=== PATIENT | female | born 1990 | race Caucasian/White ===

== ENCOUNTER 2019-01-04 20:39 | Emergency (ER) | payer MEDICAID, OTHER ==
[~2019-01-04] VITALS: Ht 154.9 cm; Wt 54.5 kg
[~2019-01-04 20:39] MED LIST: ACET-66 PO; [UNRECOGNIZED DRUG - OTHER] SQ
[2019-01-04 21:54] VITALS: BP 136/97
== END 2019-01-04 22:32 | disposition home or self-care (01) ==
LOC: EMS 20:39
DX: F41.9 Anxiety disorder, unspecified (principal); K08.89 Other specified disorders of teeth and supporting structures; F17.210 Nicotine dependence, cigarettes, uncomplicated

== ENCOUNTER 2019-09-23 03:31 | Emergency (ER) | payer SELFPAY ==
[~2019-09-23] VITALS: Ht 154.9 cm; Wt 56.8 kg
[2019-09-23] MEDS ORDERED: AMOXICILLIN TRIHYDRATE 250 MG CAPSULE PO ONE (05:15)
[2019-09-23 05:50] VITALS: BP 122/70
== END 2019-09-23 05:52 | disposition home or self-care (01) ==
LOC: EMS 03:32
DX: K02.9 Dental caries, unspecified (principal); G89.29 Other chronic pain; F17.210 Nicotine dependence, cigarettes, uncomplicated

== ENCOUNTER 2020-07-21 20:58 | Emergency (ER) | payer MEDICAID ==
[~2020-07-21] VITALS: Ht 154.9 cm; Wt 56.8 kg
[2020-07-21] MEDS ORDERED: ACETAMINOPHEN 500 MG TABLET PO ONE (22:30)
[2020-07-21] MEDS ORDERED: DOXYCYCLINE HYCLATE 100 MG TABLET PO ONE (22:30)
[2020-07-21 23:00] VITALS: BP 116/77
== END 2020-07-21 23:05 | disposition home or self-care (01) ==
LOC: EMS 20:59
DX: L03.115 Cellulitis of right lower limb (principal); F17.210 Nicotine dependence, cigarettes, uncomplicated

== ENCOUNTER 2020-09-20 01:01 | Emergency (ER) | payer MEDICAID ==
[~2020-09-20] VITALS: Ht 154.9 cm; Wt 56.8 kg
[2020-09-20 02:40] VITALS: BP 144/70
== END 2020-09-20 03:22 | disposition home or self-care (01) ==
LOC: EMS 01:03
DX: S02.5XXA Fracture of tooth (traumatic), initial encounter for closed fracture (principal); S01.511A Laceration without foreign body of lip, initial encounter; F17.210 Nicotine dependence, cigarettes, uncomplicated; Y04.0XXA Assault by unarmed brawl or fight, initial encounter; Y93.89 Activity, other specified; Y92.89 Other specified places as the place of occurrence of the external cause; Y99.8 Other external cause status
CPT/HCPCS: 99283; Z7502

== ENCOUNTER 2020-12-24 19:59 | Emergency (ER) | payer MEDICAID ==
[~2020-12-24] VITALS: Ht 157.5 cm; Wt 59.1 kg
[2020-12-24] MEDS ORDERED: ACETAMINOPHEN 500 MG TABLET PO ONE (20:45)
[2020-12-24 21:03] LABS: BASOPHILS % (AUTO) 0.5 % (0.0-2.0); EOSINOPHILS % (AUTO) 1.1 % (1.0-6.0); HEMOGLOBIN 11.5 g/dL (12.0-16.0); LYMPHOCYTES # (AUTO) 2.1 K/uL (1.0-4.8); LYMPHOCYTES % (AUTO) 19.7 % (22.0-44.0); MEAN CORPUSCULAR HEMOGLOBIN 30.3 pg (26.0-34.0); MEAN CORPUSCULAR HGB CONC 33.8 G/dL (31.0-37.0); MEAN CORPUSCULAR VOLUME 90 fL (80-100); MONOCYTES # (AUTO) 0.9 K/uL (0.1-1.0); MONOCYTES % (AUTO) 8.2 % (2.0-9.0); NEUTROPHILS # (AUTO) 7.6 K/uL (1.8-7.7); NEUTROPHILS % (AUTO) 70.5 % (40.0-70.0); PLATELET COUNT (AUTO) 372 K/uL (150-450); RED BLOOD CELL COUNT(AUTO) 3.78 MIL/uL (4.00-5.20)
[2020-12-24 21:16] LABS: ANION GAP 11 mmol/L (8-16); CALCIUM, TOTAL 9.3 mg/dL (8.8-10.5); CARBON DIOXIDE 26 mmol/L (22-29); CHLORIDE 100 mmol/L (98-107); CREATININE 0.54 mg/dL (0.60-1.30); GLOMERULAR FILTR. RATE CALC > 60 mL/min (>60); GLUCOSE,RANDOM 95 mg/dL (70-110); POTASSIUM 3.8 mmol/L (3.5-5.1); SODIUM SERUM 137 mmol/L (136-145); UREA NITROGEN, BLOOD 10 mg/dL (7-18)
[2020-12-24 21:27] LABS: ALANINE AMINOTRANSFERASE 21 U/L (12-78); ALBUMIN 3.5 g/dL (3.4-5.0); ALKALINE PHOSPHATASE 90 U/L (46-116); ASPARTATE AMINOTRANSFERASE 15 U/L (15-37); BILIRUBIN,TOTAL 0.4 mg/dL (0.1-1.0); HCG,QUANTITATIVE < 1 mIU/mL (0-6); LIPASE 120 U/L (73-393); TOTAL PROTEIN, SERUM 7.8 g/dL (6.4-8.2)
[2020-12-24] MEDS ORDERED: LIDOCAINE/PF 1% 2 ML VIAL IM ONE (22:00)
[2020-12-24] MEDS ORDERED: CefTRIAXone SODIUM 1 GM/VIAL IM ONE (22:00)
[2020-12-24 22:01] LABS: APPEARANCE,URINE CLOUDY (CLEAR); BILIRUBIN,URINE NEGATIVE (NEGATIVE); GLUCOSE, URINE (UA) NEGATIVE (NEGATIVE); KETONES,URINE NEGATIVE (NEGATIVE); LEUKOCYTE ESTERASE ,URINE MODERATE (NEGATIVE); NITRATE,URINE NEGATIVE (NEGATIVE); OCCULT BLOOD,URINE NEGATIVE (NEGATIVE); PH,URINE 7.5 (5.0-8.0); PROTEIN,URINE NEGATIVE (NEGATIVE); UROBILINOGEN,URINE 0.2 mg/dL (<=1.0)
[2020-12-24 22:23] VITALS: BP 118/75
[2020-12-24 22:26] LABS: BACTERIA,URINE Few /HPF (None Seen); RBC,URINE None Seen /HPF (0-2)
[2020-12-24 22:27] LABS: SQUAMOUS EPITHELIAL CELL,UR Rare /LPF (None Seen)
== END 2020-12-25 00:18 | disposition home or self-care (01) ==
LOC: EMS 20:04
DX: N39.0 Urinary tract infection, site not specified (principal); N93.8 Other specified abnormal uterine and vaginal bleeding; F17.210 Nicotine dependence, cigarettes, uncomplicated; F12.90 Cannabis use, unspecified, uncomplicated
CPT/HCPCS: 36415; 74176; 80053; 81001; 83690; 84702; 85025; 87086; 87491; 87591; 96372; 99284; J0696; J3490; 51701

== ENCOUNTER 2021-09-12 00:26 | Emergency (ER) | payer MEDICAID ==
[~2021-09-12] VITALS: Ht 157.5 cm; Wt 63.6 kg
[2021-09-12 00:31] VITALS: BP 107/75
[2021-09-12] MEDS ORDERED: DOXYCYCLINE HYCLATE 100 MG TABLET PO ONE (01:00)
[2021-09-12] MEDS ORDERED: IBUPROFEN 600 MG TABLET PO ONE (01:00)
== END 2021-09-12 01:20 | disposition home or self-care (01) ==
LOC: EMS 00:26
DX: L02.414 Cutaneous abscess of left upper limb (principal); F17.210 Nicotine dependence, cigarettes, uncomplicated; F12.90 Cannabis use, unspecified, uncomplicated
CPT/HCPCS: 99283

== ENCOUNTER 2023-01-23 11:31 | Emergency (ER) | payer OTHER ==
[~2023-01-23] VITALS: Ht 157.5 cm; Wt 75.0 kg
[2023-01-23] MEDS ORDERED: SODIUM CHLORIDE 0.9% 250 ML IRRIG SOLUTION BOTTLE IRRIG ONE (13:00)
[2023-01-23] MEDS ORDERED: PERTUSS(ACELL),DIPH,TET VAC/PF 0.5 ML SYRINGE IM. ONE (13:00)
[2023-01-23] MEDS ORDERED: LIDOCAINE 2%/EPI 1:200,000/PF 10 ML VIAL ID ONE (13:30)
[2023-01-23 15:10] VITALS: BP 117/75
== END 2023-01-23 15:00 | disposition home or self-care (01) ==
LOC: EMS 11:37
DX: S81.811A Laceration without foreign body, right lower leg, initial encounter (principal); F17.210 Nicotine dependence, cigarettes, uncomplicated; F12.90 Cannabis use, unspecified, uncomplicated; F15.90 Other stimulant use, unspecified, uncomplicated; X58.XXXA Exposure to other specified factors, initial encounter; Y93.89 Activity, other specified; Y92.89 Other specified places as the place of occurrence of the external cause; Y99.8 Other external cause status
CPT/HCPCS: 12002; 90471; 90715; 99283

== ENCOUNTER 2023-02-28 11:07 | Emergency (ER) | payer OTHER ==
[~2023-02-28] VITALS: Ht 157.5 cm; Wt 63.6 kg
[2023-02-28 11:30] VITALS: BP 114/67
[2023-02-28] MEDS ORDERED: AZITHROMYCIN 500 MG TABLET PO ONE (12:15)
== END 2023-02-28 12:33 | disposition home or self-care (01) ==
LOC: EMS 11:07
DX: S80.921D Unspecified superficial injury of right lower leg, subsequent encounter (principal); A56.8 Sexually transmitted chlamydial infection of other sites; F17.210 Nicotine dependence, cigarettes, uncomplicated; F12.90 Cannabis use, unspecified, uncomplicated; G89.29 Other chronic pain; K08.89 Other specified disorders of teeth and supporting structures; F15.90 Other stimulant use, unspecified, uncomplicated; Z98.890 Other specified postprocedural states; Z48.02 Encounter for removal of sutures; X58.XXXD Exposure to other specified factors, subsequent encounter
CPT/HCPCS: 99283; 87491; 87591; Q9967

== ENCOUNTER 2024-10-18 03:27 | Emergency (ER) | payer OTHER ==
[~2024-10-18] VITALS: Ht 160 cm; Wt 63.6 kg
[2024-10-18 03:47] VITALS: TEMP 98.2
[2024-10-18] MEDS ORDERED: ACET-66 PO (03:50)
[2024-10-18] MEDS ORDERED: CEPH-558 PO (03:50)
[2024-10-18] MEDS ORDERED: IBUP-1554 PO (03:50)
[2024-10-18] MEDS: ACETAMINOPHEN 500 MG TABLET PO ONE (04:03)
[2024-10-18] MEDS: CEPHALEXIN MONOHYDRATE 500 MG CAPSULE PO ONE (04:03)
[2024-10-18 04:40] VITALS: BP 96/46; PULSE 104; RESP 15; O2SAT 99
== END 2024-10-18 04:48 | disposition home or self-care (01) ==
LOC: EMS 03:29
DX: J02.9 Acute pharyngitis, unspecified (principal); F12.90 Cannabis use, unspecified, uncomplicated; F17.210 Nicotine dependence, cigarettes, uncomplicated
CPT/HCPCS: 84703; 99283